=== PATIENT | male | born 2000 | race Caucasian/White ===

== ENCOUNTER 2019-08-31 06:57 | Emergency (ER) | payer OTHER, SELFPAY ==
[2019-08-31 07:00] VITALS: BP 128/74; PULSE 103; RESP 18; TEMP 37.9; O2SAT 98
--- NOTE | 2019-08-31 07:22 | ED.EAR ---
HPI - Ear Problem General Chief complaint: Ear Stated complaint: right ear pain Time Seen by Provider: 08/31/19 07:14 Source: patient Mode of arrival: ambulatory Limitations: no limitations History of Present Illness HPI Narrative: This patient is a 18 year old male who presents for evaluation of right ear pain. He reports swelling to right ear and deafening since . Last night he noticed right ear pain and some watery yellow discharge from his right ear. He denies associated nausea, vomiting, dizziness. He denies fever at home. He was found to have low grade fever in ER. MD Complaint: ear pain, ear discharge and decreased hearing Location: right ear Duration: constant Relieving factors: nothing Exacerbating factors: palpation Discharge from ear: Reports yes - purulent Associated symptoms ear: fever, decreased hearing, headache, external ear tenderness and ear swelling Treatment prior to arrival: none Related Data Allergies Allergy/AdvReac Type Severity Reaction Status Date / Time Penicillins Allergy Unknown Rash Verified 08/31/19 07:02 Review of Systems Review of Systems: All systems reviewed & are unremarkable except as noted in HPI and below PMFSH Past Medical History Medical History (Updated 08/31/19 @ 07:29 by Lavonne Wick MD) Patient denies medical problems Social History Social History Smoking status: Never smoker Alcohol intake: never Exam Const: General: no acute distress and alert Orientation/consciousness: patient oriented x3 HENMT: Head: normocephalic and atraumatic Ears: external ear abnormal auricular tenderness and pain with movement of external ear and unable to visualize TM on the right (only able to see lower TM mild exudate on it, no definite perforation) Eyes: Pupils: Equal, round and reactive pupils present EOM: EOMs intact bilaterally Neck: Neck: normal visual inspection Resp: Effort & Inspection: normal respiratory effort Skin: General skin exam: normal color Rashes: no rashes Neuro: General: patient oriented x3 and moves all extremities Extrem: General: no pedal edema Psych: Mental Status: mental status grossly normal Affect: normal affect Course Vital Signs Vital signs: Vital Signs Temperature 100.2 F H 08/31/19 07:00 Pulse Rate 103 H 08/31/19 07:00 Respiratory Rate 18 08/31/19 07:00 Blood Pressure 128/74 08/31/19 07:00 Pulse Oximetry 98 08/31/19 07:00 Temperature 100.2 F H 08/31/19 07:00 Pulse Rate 103 H 08/31/19 07:00 Respiratory Rate 18 08/31/19 07:00 Blood Pressure 128/74 08/31/19 07:00 Pulse Oximetry 98 08/31/19 07:00 Medical Decision Making Vital Signs Vital Signs: Vital Signs Temperature 100.2 F H 08/31/19 07:00 Pulse Rate 103 H 08/31/19 07:00 Respiratory Rate 18 08/31/19 07:00 Blood Pressure 128/74 08/31/19 07:00 Pulse Oximetry 98 08/31/19 07:00 Temperature 100.2 F H 08/31/19 07:00 Pulse Rate 103 H 08/31/19 07:00 Respiratory Rate 18 08/31/19 07:00 Blood Pressure 128/74 08/31/19 07:00 Pulse Oximetry 98 08/31/19 07:00 Discharge Plan Discharge Clinical Impression: Acute right otitis media Acute otitis externa of right ear Qualifiers: Otitis externa type: unspecified type Qualified Code(s): H60.501 - Unspecified acute noninfective otitis externa, right ear Patient Disposition: Home, Self-Care Condition: Stable Instructions: Antibiotic Form, Otitis Externa (ED), Ear Infection (ED) Prescriptions: New ibuprofen 600 mg tablet 600 mg PO Q6H PRN (Reason: Pain (Scale Score 4-6)) Qty: 14 RF: 0 azithromycin 250 mg tablet See Rx Instructions .ROUTE .COMPLEX Qty: 6 RF: 0 [id number]-IM 3.5-10,000-1 mg/mL-unit/mL-% drops,suspension 4 drop RIGHT EAR Q6H 10 Days Qty: 10 RF: 0 Follow-up/Referrals: Willis Carolina MD [Primary Care Provider] - Discharge Date/Time: 08/31/19 07:40
== END 2019-08-31 07:40 | disposition home or self-care (01) ==
LOC: ANHED 07:30
PROVIDERS: Emergency Provider General Practice; PCP Family Medicine
DX: H66.91 Otitis media, unspecified, right ear (principal); H60.501 Unspecified acute noninfective otitis externa, right ear
CPT/HCPCS: 99283